=== PATIENT | male | born 1975 | race Caucasian/White ===

== ENCOUNTER 2017-09-12 15:54 | Emergency (ER) | payer BC ==
--- NOTE | 2017-09-12 16:07 | EDPHY ---
H & P Stated Complaint: hiking with very little sleep yesterday noted palpitations now resolved Time Seen by Provider: 09/12/17 16:07 HPI/ROS: HPI CHIEF COMPLAINT: Palpitations while hiking yesterday. HISTORY OF PRESENT ILLNESS: 42-year-old male, otherwise healthy no significant medical history and no cardiovascular risk fractures, presents emergency room [place] [address] [place]. He states at 7:00 a.m. [place] [id number] [place] hiking he has done many 14'ers before. He resides in [place]. However he has been here since July. 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 He hikes many 14er's when out here. He states that during his hike yesterday or over 24 hr ago he developed palpitations. He denies any chest pain or shortness of breath, denies chest pressure, denies pleuritic pain. Denies fever vomiting. He states since descending he has felt fine. He has had no chest pain or shortness of breath. No ongoing palpitations he decided come the emergency room for these palpitations to be evaluated and get his "heart Checked out" Currently at this time in the emergency room he has no complaints. Past Medical History: No significant medical history Past Surgical History: No significant surgical history Social History: Denies daily use of drugs alcohol tobacco. From [place]. Here for the summer. Family History: Denies any significant cardiovascular risk factors ROS REVIEW OF SYSTEMS: A comprehensive 10 point review of systems is otherwise negative aside from elements mentioned in the history of present illness. Exam Constitutional appears well nontoxic triage nursing summary reviewed, vital signs reviewed, awake/alert. Eyes normal conjunctivae and sclera, EOMI, PERRLA. HENT normal inspection, atraumatic, moist mucus membranes, no epistaxis, neck supple/ no meningismus, no raccoon eyes. Respiratory clear to auscultation bilaterally, normal breath sounds, no respiratory distress, no wheezing. Cardiovascular rate normal, regular rhythm, no murmur, no edema, distal pulses normal. Gastrointestinal soft, non-tender, no rebound, no guarding, normal bowel sounds, no distension, no pulsatile mass. Genitourinary no CVA tenderness. Musculoskeletal no midline vertebral tenderness, full range of motion, no calf swelling, no tenderness of extremities, no meningismus, good pulses, neurovascularly intact. Skin pink, warm, & dry, no rash, skin atraumatic. Neurologic awake, alert and oriented x 3, AAOx3, moves all 4 extremities equally, motor intact, sensory intact, CN II-XII intact, normal cerebellar, normal vision, normal speech. Psychiatric normal mood/affect. Heme/Lymph/Immune no lymphadenopathy. Differential diagnosis includes but is not limited to: ACS, atypical chest pain , pneumothorax, pneumonia, pulmonary embolism, aortic dissection, congestive heart failure, tumor, musculoskeletal pain, esophageal pain, GERD, peptic ulcer disease, pancreatitis Medical Decision Making: Plan for this patient IV establishment blood draw, check troponin, chest x-ray, EKG, environmental monitoring technician for palpitations and re- evaluate. Re-evaluation: EKG interpretation by me on record in [facility] system. Impression time of EKG 1609, rate of 66, no acute ischemia no signs of cardiac arrhythmia no WPW or Brugada. No signs of acute ischemia. Unremarkable EKG. Blood work reviewed. Unremarkable negative troponin. EKG is nonischemic. ED x-ray chest one view negative for acute cardiopulmonary disease. Patient is hemodynamically stable here without any signs of cardiac arrhythmia without any chest pain. Symptoms were yesterday. Trop negative. EKG shows no signs of cardiac arrhythmia or ischemia. Patient has no cardiovascular risk factors. I do recommend he follows up with Cardiology on outpatient basis for outpatient stress testing. I did recommend he does this before he climbs another 14er. He understands this. Additionally understands return emergency room if develops chest pain shortness of breath, palpitations, syncope, or not feeling well. Source: Patient - Personal History Current Tetanus Diphtheria and Acellular Pertussis (TDAP): Yes - Medical/Surgical History Hx Asthma: No Hx Chronic Respiratory Disease: No Hx Diabetes: No Hx Cardiac Disease: No Hx Renal Disease: No Hx Cirrhosis: No Hx Alcoholism: No Hx HIV/AIDS: No Hx Splenectomy or Spleen Trauma: No Other PMH: denies - Social History Smoking Status: Never smoked Constitutional: Initial Vital Signs Temperature (C) 36.6 C 09/12/17 15:58 Heart Rate 80 09/12/17 15:58 Respiratory Rate 17 09/12/17 15:58 Blood Pressure 146/94 H 09/12/17 15:58 O2 Sat (%) 97 09/12/17 15:58 O2 Delivery Mode Room Air Allergies/Adverse Reactions: aspirin Allergy (Verified 09/12/17 15:57) Home Medications: Medication Instructions Recorded Finasteride 09/12/17 Propranolol HCl 09/12/17 Medical Decision Making - Diagnostics Imaging Results: Imaging Impressions Chest X-Ray 09/12/17 16:08 Impression: Negative portable chest. - Data Points Laboratory Results: Laboratory Results 09/12/17 16:13 09/12/17 16:13 09/12/17 09/12/17 09/12/17 16:13 16:13 16:13 WBC RBC Hgb Hct MCV MCH MCHC RDW Plt Count MPV Neut % (Auto) Lymph % (Auto) Hettinger % (Auto) Eos % (Auto) Baso % (Auto) Nucleat RBC Rel Count Absolute Neuts (auto) Absolute Lymphs (auto) Absolute Monos (auto) Absolute Eos (auto) Absolute Basos (auto) Absolute Nucleated RBC Immature Gran % Immature Gran # PT 14.6 SEC SEC (12.0-15.0) INR 1.12 (0.83-1.16) APTT 30.7 SEC SEC (23.0-38.0) D-Dimer < 0.27 ug/mLFEU ug/mLFEU (0.00-0.50) Sodium 139 mEq/L mEq/L (135-145) Potassium 3.6 mEq/L mEq/L (3.3-5.0) Chloride 103 mEq/L mEq/L (97-110) Carbon Dioxide 24 mEq/l mEq/l (22-31) Anion Gap 12 mEq/L mEq/L (8-16) BUN 17 mg/dL mg/dL (7-23) Creatinine 1.1 mg/dL mg/dL (0.7-1.3) Estimated GFR > 60 Glucose 79 mg/dL mg/dL (70-100) Calcium 9.4 mg/dL mg/dL (8.5-10.4) Magnesium 2.1 mg/dL mg/dL (1.6-2.3) Total Bilirubin 1.1 mg/dL mg/dL (0.1-1.4) Conjugated Bilirubin 0.2 mg/dL mg/dL (0.0-0.5) Unconjugated Bilirubin 0.9 mg/dL mg/dL (0.0-1.1) AST 24 IU/L IU/L (17-59) ALT 41 IU/L IU/L (21-72) Alkaline Phosphatase 72 IU/L IU/L (38-126) POC Troponin I 0.00 ng/mL ng/mL (0.00-0.08) NT-Pro-B Natriuret Pep 21 pg/mL pg/mL (0-125) Total Protein 7.8 g/dL g/dL (6.3-8.2) Albumin 4.3 g/dL g/dL (3.5-5.0) TSH 3.770 uIU/mL uIU/mL (0.465-4.680) 09/12/17 16:13 WBC 8.43 10^3/uL 10^3/uL (3.80-9.50) RBC 4.79 10^6/uL 10^6/uL (4.40-6.38) Hgb 15.4 g/dL g/dL (13.7-17.5) Hct 43.6 % % (40.0-51.0) MCV 91.0 fL fL (81.5-99.8) MCH 32.2 pg pg (27.9-34.1) MCHC 35.3 g/dL g/dL (32.4-36.7) RDW 13.2 % % (11.5-15.2) Plt Count 302 10^3/uL 10^3/uL (150-400) MPV 8.4 fL L fL (8.7-11.7) Neut % (Auto) 45.0 % % (39.3-74.2) Lymph % (Auto) 44.4 % % (15.0-45.0) Hettinger % (Auto) 8.2 % % (4.5-13.0) Eos % (Auto) 1.3 % % (0.6-7.6) Baso % (Auto) 0.9 % % (0.3-1.7) Nucleat RBC Rel Count 0.0 % % (0.0-0.2) Absolute Neuts (auto) 3.79 10^3/uL 10^3/uL (1.70-6.50) Absolute Lymphs (auto) 3.74 10^3/uL H 10^3/uL (1.00-3.00) Absolute Monos (auto) 0.69 10^3/uL 10^3/uL (0.30-0.80) Absolute Eos (auto) 0.11 10^3/uL 10^3/uL (0.03-0.40) Absolute Basos (auto) 0.08 10^3/uL 10^3/uL (0.02-0.10) Absolute Nucleated RBC 0.00 10^3/uL 10^3/uL (0-0.01) Immature Gran % 0.2 % % (0.0-1.1) Immature Gran # 0.02 10^3/uL 10^3/uL (0.00-0.10) PT INR APTT D-Dimer Sodium Potassium Chloride Carbon Dioxide Anion Gap BUN Creatinine Estimated GFR Glucose Calcium Magnesium Total Bilirubin Conjugated Bilirubin Unconjugated Bilirubin AST ALT Alkaline Phosphatase POC Troponin I NT-Pro-B Natriuret Pep Total Protein Albumin TSH Medications Given: Discontinued Medications Sodium Chloride (Ns) 1,000 mls @ 0 mls/hr IV EDNOW ONE; Wide Open PRN Reason: Protocol Stop: 09/12/17 16:09 Last Admin: 09/12/17 16:12 Dose: 1,000 mls Point of Care Test Results: Chemistry 09/12/17 16:13 POC Troponin I 0.00 ng/mL ng/mL (0.00-0.08) Departure - Departure Disposition: Home, Routine, Self-Care Clinical Impression: Palpitations Condition: Good Instructions: Heart Palpitations (ED) Additional Instructions: 1. Please return emergency room if develops chest pain, shortness of breath, syncope or severe palpitations. 2. I do recommend he follow up with Cardiology prior to hiking another 14er. 3. Return if any further symptoms questions or concerns. Referrals: NONE *PRIMARY CARE P,. [Primary Care Provider] - As per Instructions Anthony Leong MD [Medical Doctor] - As per Instructions
[2017-09-12] MEDS ORDERED: NS 1,000 ML IV ONE (16:08)
--- NOTE | 2017-09-12 16:11 | CPEKG ---
Heart Rate: 66 RR Interval: 909 P-R Interval: 152 QRSD Interval: 92 QT Interval: 388 QTC Interval: 407 P Linneus: 28 QRS Linneus: 55 T Wave Linneus: 11 EKG Severity - NORMAL ECG - EKG Impression: SINUS RHYTHM Electronically Signed By: Angelito Mitchell 12-Sep-2017 23:52:42
[2017-09-12 16:30] LABS: PLATELET COUNT 302 10^3/uL (150-400)
[2017-09-12 16:43] LABS: INR 1.12 (0.83-1.16); PROTIME(PATIENT) 14.6 SEC (12.0-15.0)
[2017-09-12 17:45] VITALS: BP 119/86
== END 2017-09-12 17:51 | disposition home or self-care (01) ==
DX: R00.2 Palpitations (principal); E86.9 Volume depletion, unspecified
CPT/HCPCS: 84484-PO